=== PATIENT | female | born 1960 | race Caucasian/White ===

== ENCOUNTER 2020-06-03 20:42 | Emergency (ER) | payer BC ==
[~2020-06-03] VITALS: Ht 160 cm; Wt 60.3 kg
[2020-06-03 20:55] VITALS: Ht 160 cm; Wt 60.3 kg
[2020-06-03 22:45] VITALS: BP 106/65
== END 2020-06-03 22:40 | disposition home or self-care (01) ==
LOC: ED 20:42
DX: S62.101A Fracture of unspecified carpal bone, right wrist, initial encounter for closed fracture (principal); W18.30XA Fall on same level, unspecified, initial encounter; Y93.89 Activity, other specified; Y92.89 Other specified places as the place of occurrence of the external cause; Y99.8 Other external cause status
CPT/HCPCS: Q0092

== ENCOUNTER 2020-11-04 21:09 | Emergency (ER) | payer BC ==
[~2020-11-04] VITALS: Ht 157.5 cm; Wt 58.1 kg
[2020-11-04 21:24] VITALS: Ht 157.5 cm; Wt 58.1 kg
[2020-11-04 22:37] VITALS: BP 144/67
== END 2020-11-04 22:37 | disposition home or self-care (01) ==
LOC: ED 21:09
DX: S61.511A Laceration without foreign body of right wrist, initial encounter (principal); W26.8XXA Contact with other sharp object(s), not elsewhere classified, initial encounter; Y93.89 Activity, other specified; Y92.89 Other specified places as the place of occurrence of the external cause; Y99.8 Other external cause status
CPT/HCPCS: 90715; J2001